=== PATIENT | female | born 1995 | race African-American/Black ===

== ENCOUNTER 2017-04-10 12:54 | Emergency (ER) | payer OTHER ==
[~2017-04-10] VITALS: Ht 154.9 cm; Wt 49.9 kg
[~2017-04-10 12:54] MED LIST: COLACE 100 MG100 MG PO; IBUPROFEN 800800 M1 PO; IRON325 PO; PRENATAL
[2017-04-10 13:22] LABS: URINE BILIRUBIN NEGATIVE (Negative); URINE BLOOD NEGATIVE (Negative); URINE CLARITY CLEAR; URINE COLOR YELLOW; URINE GLUCOSE-RANDOM* NEGATIVE (Negative); URINE KETONES NEGATIVE (Negative); URINE LEUKOCYTES NEGATIVE (Negative); URINE NITRITE NEGATIVE (Negative); URINE PROTEIN (DIPSTICK) NEGATIVE (Negative); URINE SPECIFIC GRAVITY >= 1.030 (1.005-1.035); URINE UROBILINOGEN 0.2 E.U./dl (0.2-1.0)
[2017-04-10 14:14] LABS: HEMATOCRIT 42.5 % (37.0-47.0); HEMOGLOBIN 14.3 gm/dL (12.0-15.0); MCH 29.8 pg (26.0-34.0); MCHC 33.6 g/dL (28.0-37.0); MCV 88.7 fL (80.0-100.0); RBC 4.79 mil/uL (4.20-5.00); RDW 12.8 % (10.5-14.5); WBC 5.6 thou/uL (4.0-11.0)
[2017-04-10 14:23] LABS: CALCIUM 9.3 mg/dL (8.5-10.1); CREATININE 0.8 mg/dL (0.6-1.0); POTASSIUM 3.6 mmol/L (3.5-5.1)
[2017-04-10] MEDS ORDERED: LEVSIN0.125 MG PO (15:39)
[2017-04-10] MEDS ORDERED: ULTRAM 50MG TAB50 MG PO (15:39)
== END 2017-04-10 15:57 | disposition home or self-care (01) ==
LOC: ER 12:54
PROVIDERS: Physician Assistant
DX: N39.0 Urinary tract infection, site not specified (principal)

== ENCOUNTER 2017-05-08 23:42 | Emergency (ER) | payer OTHER ==
[~2017-05-08] VITALS: Ht 160 cm; Wt 52.2 kg
[~2017-05-08 23:42] MED LIST changes: +LEVSIN0.125 MG PO; +ULTRAM 50MG TAB50 MG PO
[2017-05-09] MEDS ORDERED: CHLORASEPTIC MA30 ML MUCOUS MEM (00:32)
[2017-05-09] MEDS ORDERED: IBUPROFEN 600600 M1 PO (00:32)
== END 2017-05-09 01:21 | disposition home or self-care (01) ==
LOC: ER 23:42
DX: J02.8 Acute pharyngitis due to other specified organisms (principal); B97.89 Other viral agents as the cause of diseases classified elsewhere

== ENCOUNTER 2017-05-25 23:38 | Emergency (ER) | payer OTHER ==
[~2017-05-25] VITALS: Ht 160 cm; Wt 52.2 kg
[~2017-05-25 23:38] MED LIST changes: +CHLORASEPTIC MA30 ML MUCOUS MEM; +IBUPROFEN 600600 M1 PO
[2017-05-26] MEDS ORDERED: NOHOMEMEDICATIONS
[2017-05-26] MEDS ORDERED: MICONAZOLE 3 K1 EACH VAG (02:27)
== END 2017-05-26 02:51 | disposition home or self-care (01) ==
LOC: ER 23:38
DX: B37.3 Candidiasis of vulva and vagina (principal)

== ENCOUNTER 2017-05-29 18:37 | Emergency (ER) | payer OTHER ==
[~2017-05-29] VITALS: Ht 160 cm; Wt 52.2 kg
[~2017-05-29 18:37] MED LIST changes: +MICONAZOLE 3 K1 EACH VAG; +NOHOMEMEDICATIONS
== END 2017-05-29 19:20 | disposition home or self-care (01) ==
LOC: ER 18:37
DX: Z20.2 Contact with and (suspected) exposure to infections with a predominantly sexual mode of transmission (principal)

== ENCOUNTER 2018-06-08 16:53 | Emergency (ER) | payer OTHER ==
[~2018-06-08] VITALS: Ht 160 cm; Wt 51.7 kg
[2018-06-08 17:16] LABS: ABSOLUTE NEUTROPHILS 2.2 thou/uL (1.4-8.2); BASOPHILS 0.9 % (0.0-2.0); EOSINOPHILS 2.6 % (0.0-3.0); HEMATOCRIT 40.4 % (37.0-47.0); HEMOGLOBIN 13.6 gm/dL (12.0-15.0); LYMPHOCYTES 48.6 % (24.0-44.0); MCH 30.1 pg (26.0-34.0); MCHC 33.5 g/dL (28.0-37.0); MCV 89.7 fL (80.0-100.0); MONOCYTES 9.6 % (1.0-8.0); PLATELET COUNT 264 thou/uL (150-400); POLYS 38.3 % (36.0-66.0); RBC 4.51 mil/uL (4.20-5.00); RDW 13.2 % (10.5-14.5); WBC 5.8 thou/uL (4.0-11.0)
[2018-06-08 17:17] LABS: URINE BILIRUBIN NEGATIVE (Negative); URINE BLOOD NEGATIVE (Negative); URINE CLARITY CLEAR; URINE COLOR YELLOW; URINE GLUCOSE-RANDOM* NEGATIVE (Negative); URINE KETONES TRACE (Negative); URINE NITRITE-REFLEX NEGATIVE (Negative); URINE PROTEIN (DIPSTICK) NEGATIVE (Negative)
[2018-06-08 17:18] LABS: URINE LEUKOCYTES-REFLEX 1+ (Negative)
[2018-06-08 17:21] LABS: SQUAMOUS 4-10 Moderate /LPF (0-3)
[2018-06-08 17:22] LABS: CASTS None Seen /LPF (None Seen); CRYSTALS None Seen /LPF (None Seen); MUCUS 0-3 Light strn/LPF (None Seen); URINE RBC None Seen /HPF (0-2); URINE WBC-REFLEX 6-15 Few /HPF (0-5)
[2018-06-08 17:24] LABS: CREATININE 0.9 mg/dL (0.6-1.0)
[2018-06-08 17:30] LABS: ALBUMIN 3.8 g/dL (3.4-5.0); TOTAL BILIRUBIN 0.6 mg/dL (<0.1-1.0); TOTAL PROTEIN 7.3 g/dL (6.4-8.2)
[2018-06-08] MEDS ORDERED: KEFLEX500 M1 PO (18:33)
[2018-06-08 19:05] VITALS: BP 105/69
== END 2018-06-08 19:06 | disposition home or self-care (01) ==
LOC: ER 16:53
PROVIDERS: Nurse Practitioner Family
DX: N39.0 Urinary tract infection, site not specified (principal); R53.1 Weakness; R19.7 Diarrhea, unspecified

== ENCOUNTER 2020-10-13 10:44 | Emergency (ER) | payer OTHER ==
[~2020-10-13] VITALS: Ht 160 cm; Wt 46.3 kg
[~2020-10-13 10:44] MED LIST changes: +KEFLEX500 M1 PO
[2020-10-13 10:49] VITALS: BP 99/74
[2020-10-13] MEDS ORDERED: MOBIC7.5 MG PO ×2 (10:59→11:17)
[2020-10-13 11:14] LABS: URINE BILIRUBIN NEGATIVE (Negative); URINE BLOOD NEGATIVE (Negative); URINE CLARITY CLEAR; URINE COLOR YELLOW; URINE GLUCOSE-RANDOM* NEGATIVE (Negative); URINE KETONES NEGATIVE (Negative); URINE LEUKOCYTES-REFLEX NEGATIVE (Negative); URINE NITRITE-REFLEX NEGATIVE (Negative); URINE PROTEIN (DIPSTICK) NEGATIVE (Negative); URINE SPECIFIC GRAVITY 1.015 (1.005-1.035); URINE UROBILINOGEN 0.2 E.U./dl (0.2-1.0)
== END 2020-10-13 11:54 | disposition home or self-care (01) ==
LOC: ER 10:44
PROVIDERS: Nurse Practitioner
DX: R10.2 Pelvic and perineal pain (principal); Z79.1 Long term (current) use of non-steroidal anti-inflammatories (NSAID); F12.90 Cannabis use, unspecified, uncomplicated